=== PATIENT | female | born 1940 | race Caucasian/White ===

== ENCOUNTER → 2016-09-21 | Outpatient (CLI) | payer MEDICARE, BC ==
[~2016-09-21] MED LIST: ENAL5TAB98 PO; GLUC2.5T2 PO; OXYC-360 PO; PIOG45 PO; RALO1TAB13 PO; SITA100 PO; TOLT10TA PO; TOPR50TA PO; VYTO10TA39 PO
== END ==
LOC: HRSP 10:35
PROVIDERS: ATTEND Family Medicine
DX: R06.02 Shortness of breath (principal)
CPT/HCPCS: 94620